=== PATIENT | female | born 1985 | race Caucasian/White ===

== ENCOUNTER 2016-03-23 16:02 | Outpatient (CLI) | payer OTHER ==
--- NOTE | 2016-03-23 16:40 | DIAGNOSTIC IMAGING REPORT ---
PROCEDURE: US OB LIMITED INDICATION: Choroid plexus cyst, follow-up TECHNIQUE: Call scale and color Doppler sonographic images obtained of the gravid uterus. COMPARISON: OB ultrasound the 02/17/2016 FINDINGS: Single intrauterine with variable presentation, posterior placenta without previa and heart rate 144 bpm. Amniotic fluid is unremarkable. Normal closed cervix measures 3.3 cm. Previously noted right choroid plexus cyst has resolved. Stomach, kidneys and bladder are grossly normal. IMPRESSION: 1. Single live intrauterine with variable presentation 2. Resolved choroid plexus cyst
== END 2016-03-23 23:00 ==
LOC: US SRH 16:02
DX: Z34.90 Encounter for supervision of normal pregnancy, unspecified, unspecified trimester (principal)

== ENCOUNTER 2016-05-14 12:03 | Outpatient (CLI) | payer OTHER ==
--- NOTE | 2016-05-14 13:07 | DIAGNOSTIC IMAGING REPORT ---
PROCEDURE: US OB RE-EVALUATION INDICATION: SMALL FOR DATES TECHNIQUE: Call scale, color, and spectral Doppler images of the second trimester gravid uterus were obtained. COMPARISON: OB ultrasound 03/23/2016 FINDINGS: A single living intrauterine is in vertex presentation. There is regular cardiac activity at a rate of 127 beats per minute. The placenta is posterior and away from the internal cervical os. The cervix is not well seen The amniotic fluid volume is subjectively normal. Biparietal diameter 8.3 cm at 33 weeks and 1 day Head circumference 30 cm at 33 weeks and 6-day Abdominal circumference 29 cm at 32 weeks and 5 days Femur length 6.4 cm at 33 weeks and 0-day Estimated weight 2083 g Composite gestational age 33 weeks and 1 day, DAMARIS 07/01/2016 Chest diaphragm stomach bladder and kidneys were normal. IMPRESSION: 1. Single living intrauterine with a composite gestational age of 33 weeks and 1 day, DAMARIS 07/01/2016
== END 2016-05-14 23:00 | disposition home or self-care (01) ==
LOC: US SRH 12:03
DX: Z34.93 Encounter for supervision of normal pregnancy, unspecified, third trimester (principal); Z3A.33 33 weeks gestation of pregnancy

== ENCOUNTER → 2016-07-01 | Outpatient (CLI) | payer OTHER ==
[~2016-07-01] MED LIST: ACETAMINOPHEN325 MG PO; DOCUSATE SODIU100 MG PO; IBUPROFEN200 M1 PO
--- NOTE | 2016-07-01 13:12 | DIAGNOSTIC IMAGING REPORT ---
PROCEDURE: US OB RE-EVALUATION INDICATION: Small for days, check DANIELLA. TECHNIQUE: Call scale, color and spectral Doppler images of the gravid uterus. COMPARISON: OB ultrasound 05/14/2016. FINDINGS: Single intrauterine with vertex presentation, posterior placenta without previa and heart rate 137 bpm. Normal closed cervix measures 3.6 cm. DANIELLA measures 15.4 cm. Ventricles, cisterna magna, four-chamber heart view, stomach, kidneys and bladder are grossly normal. BPD 9.2 cm, 37 weeks 3 days; head circumference 34 cm, 39 weeks 1 day; abdominal circumference 34.7 cm, 38 weeks 4 days; femur length 7.7 cm, 39 weeks 3 days. Composite age 38 weeks 5 days. DAMARIS 07/10/2016. Estimated weight 3565 g plus/minus 535 g (7.86 pounds). IMPRESSION: 1. Single live intrauterine , vertex, 38 weeks 5 days 2. DAMARIS 07/10/2016, 9 days delayed growth
== END ==
LOC: US SRH 10:41
DX: Z34.93 Encounter for supervision of normal pregnancy, unspecified, third trimester (principal); Z3A.38 38 weeks gestation of pregnancy

== ENCOUNTER 2016-07-11 01:44 | Inpatient (IN) | payer OTHER ==
[2016-07-11] VITALS (10 sets, daily range): BP systolic 105–153; BP diastolic 55–79
[~2016-07-11] VITALS: Ht 170.2 cm; Wt 82.1 kg
[2016-07-12] VITALS: BP 116/73
[2016-07-12 04:00] VITALS: BP 111/66
[2016-07-12 09:15] VITALS: BP 112/73
[2016-07-12] MEDS ORDERED: DOCUSATE SODIU100 MG PO (10:10)
[2016-07-12] MEDS ORDERED: ACETAMINOPHEN325 MG PO (10:10)
--- NOTE | 2016-07-12 10:10 | Provider's Discharge Care Plan ---
Problem, Goal, Plan Problem List 1. Vaginal delivery Goals: Improved health/wellness Instructions: Follow up as directed
--- NOTE | 2016-07-12 10:10 | Provider's Discharge Care Plan ---
Problem, Goal, Plan Problem List 1. Vaginal delivery Goals: Improved health/wellness Instructions: Follow up as directed
[2016-07-12] MEDS ORDERED: IBUPROFEN200 M1 PO (10:11)
--- NOTE | 2016-07-15 16:10 | DISCHARGE SUMMARY ---
ADMIT DATE: 07/11/2016 DISCHARGE DATE: 07/12/2016 ADMISSION DIAGNOSIS: 1. Spontaneous labor. 2. 31 yo at term DISCHARGE DIAGNOSIS: 1. BRIEF HISTORY: This is a 31-year-old , presenting at term in spontaneous labor. Anesthesia was called to attempt an epidural; however, right immediately before inserting the needle for the epidural, the patient announced that she had to push, and the patient delivered a healthy baby girl spontaneously. Placenta delivered without any complications, and perineum was intact. Apgars were 8 and 9, and resuscitation was with skin stimulation. Estimated blood loss less than 150 mL HOSPITAL COURSE: The patient was monitored in the hospital overnight. She was feeling well the next day, including having passed her urine, eating well. No cough or shortness of breath. She denies any large blood clots or increasing abdominal pain. Her pain was controlled with oral pain medications. PHYSICAL EXAMINATION: At the time of discharge, vital signs are stable. This is a healthy-appearing female sitting in bed in no apparent distress. Head is atraumatic, normocephalic. Lungs are clear to auscultation bilaterally. Heart has S1, S2. No S3, S4, murmurs, gallops, or rubs. Abdomen is soft, nontender, nondistended, without hepatosplenomegaly or masses. Bowel sounds are active. U is 1 cm below the umbilicus, and there is trace bilateral lower extremity edema. DISCHARGE INSTRUCTIONS/MEDICATIONS: The patient was discharged to home with instructions to follow up with her primary care provider in 6 weeks. Diet: Regular. Activity: Advance as tolerated. Medications: Ibuprofen 400 mg p.o. q.4 hours p.r.n. pain. Tylenol 500 mg p.o. q.4 hours p.r.n. pain. Colace 100 mg p.o. b.i.d. p.r.n. constipation. vitamins 1 tab p.o. daily.
== END 2016-07-12 13:10 | disposition home or self-care (01) | DRG 775 ==
LOC: OBC SRH 01:44 → OB SRH 01:47 → OBC SRH 02:13 → OB SRH 02:15
PROVIDERS: ADMIT Family Medicine
DX: O70.1 Second degree perineal laceration during delivery (principal); Z37.0 Single live birth; Z3A.40 40 weeks gestation of pregnancy; O62.3 Precipitate labor; O48.0 Post-term pregnancy
CPT/HCPCS: 40010; 84038; 90001; 90155; 91004; 95059